=== PATIENT | female | born 1990 | race Two or more races ===

== ENCOUNTER 2020-07-09 20:51 | Emergency (ER) | payer SELFPAY ==
[~2020-07-09] VITALS: Ht 162.6 cm; Wt 55.1 kg
[2020-07-09] MEDS ORDERED: BUPR1FIL5 PO (21:03)
--- NOTE | 2020-07-09 21:17 | NUR ---
29 YO F BIB BY PHANI FROM [facility] FOR ETOH AND SUBOXONE DETOX. STATES LAST DRINK WAS AROUND 10/12 AT 0000, LAST USE OF SUBOXONE WAS 4 DAYS AGO. PT IS CALM AND AMBULATES WITH STEADY GAIT. NO ACTIVE VOMITING. COMPLAINS OF HEADACHE, ABD PAIN, AND PAIN "HEAD TO TOE". REQUESTING SOMETHING FOR PAIN. ALSO STATES SHE HAS A HX OF SZ WITH ETOH WITHDRAWL.
[2020-07-09] MEDS ORDERED: SODIUM CHLORIDE 0.9% 1,000ML IVBOLUS ONE (21:30)
[2020-07-09] MEDS ORDERED: LORazepam 2 MG/ML, 1ML IVPush ONE ×2 (21:30→23:00)
[2020-07-09] MEDS ORDERED: ONDANSETRON 2MG/ML, 2ML IVPush ONE (21:30)
[2020-07-09] MEDS ORDERED: MORPHINE SULFATE 4 MG/ML, 1ML IVPush PRN (21:30)
--- NOTE | 2020-07-09 21:45 | NUR ---
assisted primary RN with care pt ambualted to BR for urine sample. pt able to ambulate without assist pt back to room. pt was advised upon admit to remain NPO, pt has an open bag of chips on her gurney. notified. urine sample sent for processing
[2020-07-09 22:01] LABS: MICROSCOPIC NOT IND
[2020-07-09 22:15] LABS: BASOPHILS % (AUTO) 2 % (0-1); EOSINOPHILS % (AUTO) 2 % (1-7); LYMPHOCYTES % (AUTO) 27 % (22-44); MEAN CORPUSCULAR HEMOGLOBIN 32.5 pg (27.0-34.8); MEAN CORPUSCULAR HGB CONC 33.1 g/dL (32.4-35.8); MEAN PLATELET VOLUME 8.2 fL (7.4-10.4); MONOCYTES % (AUTO) 9 % (2-9); NEUTROPHILS % (AUTO) 61 % (42-75); PLATELET COUNT 237 x10^3/uL (130-400); RED BLOOD COUNT 3.66 x10^6/uL (3.82-5.3); RED CELL DISTRIBUTION WIDTH 14.9 % (9.6-15.2)
[2020-07-09 22:17] LABS: MD NO
[2020-07-09] MEDS ORDERED: ONDANSETRON 2MG/ML, 2ML ONE (22:25)
[2020-07-09 22:26] LABS: ALANINE AMINOTRANSFERASE 65 U/L (12-78); ALBUMIN 3.3 g/dL (3.4-5.0); ANION GAP 5 mmol/L (5-15); CALCIUM 8.4 mg/dL (8.5-10.1); CHLORIDE 108 mmol/L (98-107)
[2020-07-09] MEDS ORDERED: LORazepam 2 MG/ML, 1ML ONE ×2 (22:26→23:19)
[2020-07-09] MEDS ORDERED: MORPHINE SULFATE 4 MG/ML, 1ML ONE (22:26)
[2020-07-09 22:31] LABS: ALKALINE PHOSPHATASE 135 U/L (45-117); BILIRUBIN,TOTAL 0.3 mg/dL (0.2-1.0); TOTAL PROTEIN 7.2 g/dL (6.4-8.2); TROPONIN I < 0.015 ng/mL (0.000-0.045)
--- NOTE | 2020-07-09 22:31 | NUR ---
PT STATES "I AM DETOXING REALLY HARD". PT DOES NOT APPEAR TO BE SWEATY AND DOES NOT FEEL TREMULOUS. PT STATES SHE HAS A "REALLY BAD HEADACHE" AND HAS PAIN "FROM, HEAD TO TOE" 07/07. MEDICATED PER EMAR. PT HAS REPEATILY ASKED FOR A RAPID COVID TEST, EDUCATED THAT THOSE ARE NOT ADMINISTERED EXCEPT FOR SURGICAL CASES. PT IS ALSO DENIYING ANY RESP SYMPTOMS. PT IS LAYING IN BED WITH ARMS BEHIND HEAD WATCHING TV REQUESTING ICE CHIPS.
--- NOTE | 2020-07-09 23:00 | NUR ---
pt has been reminded mulitple times to keep arm in position to enable IV infusion. pt has ambualted to BR again. pt has been taking PO ice chips per MD OK without incident. pt has had no vomiting since admit. pt is warm and dry. no tremulous activity noted. pt states that she has a migraine. lights dimmed pe pt request. pt watching TV.
[2020-07-10 00:22] VITALS: BP 112/72
--- NOTE | 2020-07-10 00:32 | NUR ---
multiple empty candy bar wrappers and chips and soda found in pt room. pt uncooperative about dc information and teaching and uncooperative about destination even though taxi voucher offered. pt appears to be pink warm and dry, ambulates around room independently. no vomiting noted since admit.
== END 2020-07-10 00:38 | disposition home or self-care (01) ==
LOC: ED 23:43
DX: F41.9 Anxiety disorder, unspecified (principal); F10.139 Alcohol abuse with withdrawal, unspecified; R00.0 Tachycardia, unspecified; R11.2 Nausea with vomiting, unspecified; Y90.0 Blood alcohol level of less than 20 mg/100 ml; Z72.9 Problem related to lifestyle, unspecified; Z87.891 Personal history of nicotine dependence
CPT/HCPCS: 36415; 80053; 80307; 81003; 83690; 84484; 84703; 85025; 93005; 96361; 96374; 96375; 96376; 99284; J2060; J2270; J2405; J7030